=== PATIENT | female | born 1980 | race African-American/Black ===

== ENCOUNTER 2017-07-31 21:31 | Emergency (ER) | payer OTHER ==
[~2017-07-31] VITALS: Ht 170.2 cm; Wt 63.5 kg
--- NOTE | ~2017-07-31 | EKG ---
[address] [place] [address] ELECTROCARDIOGRAM REPORT Name: KATHLEEN MOISE V Room #: [facility]#: [id number] Admission: 07/31/17 Attend Phys: Discharge: 07/31/17 Date of : 76 Report #: [id number] THIS REPORT FOR: //name// [facility] ED Test Date: 2017-07-31 Test Time: 22:34:26 Pat Name: KATHLEEN MOISE Department: Room: Gender: F [facility] Therapist: earnestine : 1980 Requested By: Alexis Carbone Order Number: [id number] MD: Neel Fleming Measurements Intervals [place] Rate: 75 P: 69 NH: 136 QRS: 70 QRSD: 94 T: 61 QT: 377 QTc: 421 Interpretive Statements Sinus rhythm Normal tracing Compared to ECG 11/26/2012 15:27:21 No significant changes Electronically Signed On 08-01-2017 8:51:36 CDT by Neel Fleming [email or web address] <ELECTRONICALLY SIGNED> By: Neel Fleming MD, [facility] 08/01/17 [id number] Neel Fleming MD, FACC /EPI
[~2017-07-31 21:31] MED LIST: CIPROFLOXACIN500 M1 PO; COLACE100 MG PO; MIRALAX255 GM PO; NO HOME MEDS
[2017-07-31 22:34] LABS: ABSOLUTE NEUTROPHILS 3.6 thou/uL (1.4-8.2); BASOPHILS 1.3 % (0.0-2.0); EOSINOPHILS 7.5 % (0.0-3.0); HEMATOCRIT 34.7 % (37.0-47.0); HEMOGLOBIN 11.4 gm/dL (12.0-15.0); LYMPHOCYTES 38.3 % (24.0-44.0); MCH 25.4 pg (26.0-34.0); MCHC 32.8 g/dL (28.0-37.0); MCV 77.4 fL (80.0-100.0); MONOCYTES 4.8 % (1.0-8.0); PLATELET COUNT 323 thou/uL (150-400); POLYS 48.1 % (36.0-66.0); RBC 4.48 mil/uL (4.20-5.00); RDW 15.8 % (10.5-14.5); WBC 7.4 thou/uL (4.0-11.0)
[2017-07-31 22:35] LABS: MANUAL DIFF NO
[2017-07-31 22:44] LABS: ANION GAP 5 mmol/L (7-16); BUN 8 mg/dL (7-18); CALCIUM 9.2 mg/dL (8.5-10.1); CHLORIDE 105 mmol/L (98-107); CO2 30 mmol/L (21-32); CREATININE 0.8 mg/dL (0.6-1.0); GLUCOSE 94 mg/dL (74-106); POTASSIUM 3.8 mmol/L (3.5-5.1); SODIUM 140 mmol/L (136-145)
[2017-07-31 22:55] LABS: ALBUMIN 3.8 g/dL (3.4-5.0); ALKALINE PHOSPHATASE 70 U/L (46-116); SGOT 16 U/L (15-37); SGPT 25 U/L (30-65); TOTAL BILIRUBIN 0.2 mg/dL (<0.1-1.0); TOTAL PROTEIN 7.1 g/dL (6.4-8.2); TROPONIN-I < 0.04 ng/mL (<0.04-0.07)
[2017-07-31] MEDS ORDERED: NAPROSYN500 MG PO (23:12)
[2017-07-31] MEDS ORDERED: FLONASE 0.05%50 MCG NASAL (23:12)
[2017-07-31] MEDS ORDERED: ALLEGRA ALLERG180 MG PO (23:12)
[2017-07-31 23:32] VITALS: BP 116/72
== END 2017-07-31 23:33 | disposition home or self-care (01) ==
LOC: ER 21:31
PROVIDERS: Emergency Medicine
DX: R07.89 Other chest pain (principal); R05 Cough; J30.2 Other seasonal allergic rhinitis; F10.99 Alcohol use, unspecified with unspecified alcohol-induced disorder; Z87.891 Personal history of nicotine dependence

== ENCOUNTER 2017-11-04 08:18 | Emergency (ER) | payer OTHER ==
[~2017-11-04] VITALS: Ht 170.2 cm; Wt 68.0 kg
[~2017-11-04 08:18] MED LIST changes: +ALLEGRA ALLERG180 MG PO; +FLONASE 0.05%50 MCG NASAL; +NAPROSYN500 MG PO
[2017-11-04 08:50] LABS: URINE BILIRUBIN NEGATIVE (Negative); URINE BLOOD 1+ (Negative); URINE COLOR YELLOW; URINE GLUCOSE-RANDOM* NEGATIVE (Negative); URINE KETONES NEGATIVE (Negative); URINE LEUKOCYTES-REFLEX NEGATIVE (Negative); URINE NITRITE-REFLEX NEGATIVE (Negative); URINE PROTEIN (DIPSTICK) NEGATIVE (Negative); URINE SPECIFIC GRAVITY >= 1.030 (1.005-1.035); URINE UROBILINOGEN 0.2 E.U./dl (0.2-1.0)
[2017-11-04 09:00] LABS: SQUAMOUS >10 Many /LPF (0-3); URINE CLARITY HAZY
[2017-11-04 09:01] LABS: CASTS None Seen /LPF (None Seen); CRYSTALS None Seen /LPF (None Seen); MUCUS 4-6 Moderate strn/LPF (None Seen); URINE WBC-REFLEX 0-5 Rare /HPF (0-5)
[2017-11-04] MEDS ORDERED: FLEXERIL PO (09:02)
[2017-11-04] MEDS ORDERED: NAPROSYN500 MG PO (09:02)
[2017-11-04] MEDS ORDERED: MEDROLDOSEPACK PO (09:03)
[2017-11-04 09:05] LABS: AMP/METHAMP Negative (Negative); BARBITURATES Negative (Negative); BENZODIAZEPINES Negative (Negative); COCAINE Negative (Negative); METHADONE Negative (Negative); OPIATES Negative (Negative); PCP Negative (Negative)
== END 2017-11-04 09:22 | disposition home or self-care (01) ==
LOC: ER 08:18
PROVIDERS: Emergency Medicine
DX: S39.012A Strain of muscle, fascia and tendon of lower back, initial encounter (principal); Z87.891 Personal history of nicotine dependence; X50.0XXA Overexertion from strenuous movement or load, initial encounter; Y93.89 Activity, other specified; Y92.89 Other specified places as the place of occurrence of the external cause; Y99.8 Other external cause status

== ENCOUNTER 2018-08-23 19:00 | Emergency (ER) | payer OTHER ==
[~2018-08-23] VITALS: Ht 170.2 cm; Wt 74.8 kg
[~2018-08-23 19:00] MED LIST changes: +FLEXERIL PO; +MEDROLDOSEPACK PO
[2018-08-23 19:29] LABS: URINE BILIRUBIN NEGATIVE (Negative); URINE BLOOD NEGATIVE (Negative); URINE CLARITY SL HAZY; URINE COLOR YELLOW; URINE GLUCOSE-RANDOM* NEGATIVE (Negative); URINE KETONES NEGATIVE (Negative); URINE LEUKOCYTES NEGATIVE (Negative); URINE NITRITE POSITIVE (Negative); URINE PROTEIN (DIPSTICK) NEGATIVE (Negative); URINE SPECIFIC GRAVITY 1.025 (1.005-1.035); URINE UROBILINOGEN 0.2 E.U./dl (0.2-1.0)
[2018-08-23 19:33] LABS: BACTERIA >30 Many /HPF (None Seen); CASTS None Seen /LPF (None Seen); CRYSTALS None Seen /LPF (None Seen); MUCUS 4-6 Moderate strn/LPF (None Seen); SQUAMOUS 4-10 Moderate /LPF (0-3); URINE RBC None Seen /HPF (0-2); URINE WBC 0-5 Rare /HPF (0-5)
[2018-08-23 19:39] LABS: ABSOLUTE NEUTROPHILS 3.6 thou/uL (1.4-8.2); BASOPHILS 1.4 % (0.0-2.0); EOSINOPHILS 4.3 % (0.0-3.0); HEMATOCRIT 30.6 % (37.0-47.0); HEMOGLOBIN 9.7 gm/dL (12.0-15.0); LYMPHOCYTES 32.9 % (24.0-44.0); MCH 23.6 pg (26.0-34.0); MCHC 31.6 g/dL (28.0-37.0); MCV 74.9 fL (80.0-100.0); MONOCYTES 6.7 % (1.0-8.0); PLATELET COUNT 295 thou/uL (150-400); POLYS 54.7 % (36.0-66.0); RBC 4.09 mil/uL (4.20-5.00); WBC 6.7 thou/uL (4.0-11.0)
[2018-08-23 19:47] LABS: CALCIUM 9.2 mg/dL (8.5-10.1); CREATININE 0.8 mg/dL (0.6-1.0); POTASSIUM 3.4 mmol/L (3.5-5.1)
[2018-08-23 19:53] LABS: ALBUMIN 3.4 g/dL (3.4-5.0); TOTAL BILIRUBIN 0.1 mg/dL (<0.1-1.0); TOTAL PROTEIN 7.4 g/dL (6.4-8.2)
[2018-08-23] MEDS ORDERED: PHENAZOPYRIDIN200 M2 PO (20:20)
[2018-08-23] MEDS ORDERED: KEFLEX500 M1 PO (20:20)
[2018-08-23] MEDS ORDERED: CYCLOBENZAPRINE5 MG PO (20:20)
[2018-08-23 20:38] VITALS: BP 130/79
== END 2018-08-23 20:39 | disposition home or self-care (01) ==
LOC: ER 19:00
PROVIDERS: Physician Assistant
DX: R10.9 Unspecified abdominal pain (principal); D64.9 Anemia, unspecified; R30.0 Dysuria; E87.6 Hypokalemia; Z87.891 Personal history of nicotine dependence; Z98.890 Other specified postprocedural states

== ENCOUNTER 2019-10-23 19:50 | Emergency (ER) | payer OTHER ==
[~2019-10-23] VITALS: Ht 162.6 cm; Wt 59.0 kg
[~2019-10-23 19:50] MED LIST changes: +CYCLOBENZAPRINE5 MG PO; +KEFLEX500 M1 PO; +PHENAZOPYRIDIN200 M2 PO
[2019-10-23 20:57] LABS: URINE BILIRUBIN NEGATIVE (Negative); URINE BLOOD NEGATIVE (Negative); URINE CLARITY CLEAR; URINE COLOR YELLOW; URINE GLUCOSE-RANDOM* NEGATIVE (Negative); URINE KETONES NEGATIVE (Negative); URINE NITRITE-REFLEX NEGATIVE (Negative); URINE PROTEIN (DIPSTICK) NEGATIVE (Negative); URINE SPECIFIC GRAVITY 1.025 (1.005-1.035); URINE UROBILINOGEN 0.2 E.U./dl (0.2-1.0)
[2019-10-23 20:59] LABS: URINE LEUKOCYTES-REFLEX 3+ (Negative)
[2019-10-23 21:11] LABS: BACTERIA-REFLEX 1-9 Few /HPF (None Seen); CASTS None Seen /LPF (None Seen); CRYSTALS None Seen /LPF (None Seen); SQUAMOUS 4-10 Moderate /LPF (0-3); URINE RBC None Seen /HPF (0-2); URINE WBC-REFLEX >25 Many /HPF (0-5)
[2019-10-23] MEDS ORDERED: FLAGYL500 M1 PO (21:19)
[2019-10-23] MEDS ORDERED: KEFLEX500 M1 PO (21:19)
[2019-10-23 21:30] VITALS: BP 147/76
== END 2019-10-23 21:30 | disposition home or self-care (01) ==
LOC: ER 19:50
PROVIDERS: Nurse Practitioner
DX: N39.0 Urinary tract infection, site not specified (principal); A59.8 Trichomoniasis of other sites; M54.5 Low back pain; Z87.891 Personal history of nicotine dependence